=== PATIENT | male | born 1980 | race Caucasian/White ===

== ENCOUNTER 2024-11-10 07:41 | Day surgery (SDC) | payer OTHER ==
[~2024-11-10] VITALS: Ht 175.3 cm; Wt 94.0 kg
[2024-11-10] MEDS ORDERED: Verapamil HCL 2.5 MG/ML 2ML Injection ONE (08:13)
[2024-11-10] MEDS ORDERED: Heparin Sodium 1000 Units/ML 10ML MDV ONE (08:14)
[2024-11-10] MEDS ORDERED: NS 1,000 ML IV ONE ×2 (08:14→08:59)
[2024-11-10] MEDS ORDERED: NS 250 ML IV ONE (08:14)
[2024-11-10] MEDS ORDERED: Nitroglycerin 2 MG/20 ML BTL ONE (08:14)
[2024-11-10] MEDS ORDERED: ASPI81CH PO (08:33)
[2024-11-10] MEDS ORDERED: ATOR40TA PO (08:33)
[2024-11-10] MEDS ORDERED: LOSA25 PO (08:34)
[2024-11-10] MEDS ORDERED: METO50ER PO (08:35)
[2024-11-10 08:37] VITALS: BP 130/84
[2024-11-10] MEDS ORDERED: Midazolam HCl 1MG / ML 2ML Vial ONE (08:59)
[2024-11-10] MEDS ORDERED: FentaNYL Citrate 50 MCG/ML 2 ML Injection ONE (08:59)
[2024-11-10 10:07] VITALS: BP 100/68
[2024-11-10 10:15] VITALS: BP 104/64
[2024-11-10 10:30] VITALS: BP 104/64
[2024-11-10 10:45] VITALS: BP 98/84
[2024-11-10 11:00] VITALS: BP 105/73
--- NOTE | 2024-11-10 11:25 | NUR ---
10cc AIR REMOVED FROM R WRIST TR BAND. NEG BLEEDING OR SWELLING.
--- NOTE | 2024-11-10 12:00 | NUR ---
R WRIST TR BAND REMOVED AND CLOTH DOT DRSG PLACED. NEG BLEEDING OR SWELLING. IV REMOVED. PT AND VERBALIZED UNDERSTANDING OF WRITTEN AND VERBAL D/C INST. PT AMB OUT OF THE HRT CENTER /S DIFFICULTY.
== END 2024-11-10 12:00 | disposition home or self-care (01) ==
LOC: MHTC 07:41
DX: I25.10 Atherosclerotic heart disease of native coronary artery without angina pectoris (principal); E78.5 Hyperlipidemia, unspecified; I50.20 Unspecified systolic (congestive) heart failure; F17.210 Nicotine dependence, cigarettes, uncomplicated; I42.9 Cardiomyopathy, unspecified; Z79.82 Long term (current) use of aspirin; Z79.899 Other long term (current) drug therapy
CPT/HCPCS: 76937; 93458; 99152; 99153; C1769; C1887; C1894; J1644; J2250; J3010; J7030; J7050; Q9967